=== PATIENT | female | born 1990 | race Caucasian/White ===

== ENCOUNTER 2024-04-25 18:08 | Emergency (ER) | payer BC ==
[~2024-04-25] VITALS: Ht 170.2 cm; Wt 49.9 kg
[2024-04-25 19:30] LABS: BASOPHILS % (AUTO) 0.4 % (0.0-2.0); EOSINOPHILS # (AUTO) 0.1 K/uL (0.0-0.7); HEMATOCRIT 35 % (33-45); LYMPHOCYTES # (AUTO) 2.8 K/uL (0.8-4.8); LYMPHOCYTES % (AUTO) 40.9 % (20.0-44.0); MEAN CORPUSCULAR HEMOGLOBIN 32 PG (26.0-33.0); MEAN CORPUSCULAR HGB CONC 34 g/dl (31.0-36.0); MEAN CORPUSCULAR VOLUME 92 fL (82-100); MONOCYTES # (AUTO) 0.7 K/uL (0.1-1.30); MONOCYTES % (AUTO) 10.8 % (2.0-12.0); NEUTROPHILS # (AUTO) 3.2 K/uL (1.8-8.9); NEUTROPHILS % (AUTO) 46.9 % (43.0-81.0); PLATELET COUNT (AUTO) 257 K/uL (150-450); RED BLOOD CELL COUNT(AUTO) 3.82 MIL/uL (4.0-5.2); RED CELL DISTRIBUTION WIDTH 12.4 % (11.5-15.0); WHITE BLOOD COUNT (AUTO) 6.8 K/uL (4.3-11.0)
[2024-04-25 19:33] LABS: APPEARANCE,URINE SLIGHTLY CLOUDY (CLEAR); BILIRUBIN,URINE NEGATIVE (NEGATIVE); BLOOD, URINE NEGATIVE Ery/uL (NEGATIVE); COLOR,URINE YELLOW (YELLOW); KETONES,URINE TRACE mg/dL (NEGATIVE); LEUKOCYTE ESTERASE ,URINE NEGATIVE (NEGATIVE); NITRITE, URINE NEGATIVE (NEGATIVE); PH,URINE 7.5 (5.0-8.0); PROTEIN,URINE NEGATIVE (NEGATIVE); UGLUCOSE NEGATIVE (NEGATIVE); UROBILINOGEN,URINE 0.2 EU/dL (0.2)
[2024-04-25 19:40] LABS: PREGNANCY TEST URINE QUAL NEGATIVE (NEGATIVE)
[2024-04-25 19:43] LABS: CALCIUM, SERUM 9.3 mg/dL (8.5-10.1); CREATININE 0.9 mg/dL (0.6-1.3); POTASSIUM 3.7 mmol/L (3.5-5.1)
[2024-04-25 19:49] LABS: URINE AMORPHOUS PHOSPHATES Moderate /HPF (None Seen)
[2024-04-25 19:50] LABS: ADD URINE CULTURE NO; BACTERIA,URINE Few /HPF (None Seen); RBC,URINE 0-2 /HPF (0-2); SQUAMOUS EPITHELIAL CELL,UR Rare /HPF (None Seen); WBC,URINE NONE SEEN /HPF (0-3)
[2024-04-25] MEDS ORDERED: KETOROLAC TROMETHAMINE 15 MG/ML VIAL ONE (20:01)
[2024-04-25] MEDS: KETOROLAC TROMETHAMINE 15 MG/ML VIAL IM ONE (20:04)
[2024-04-25] MEDS ORDERED: ONDANSETRON HCL 4 MG/5 ML SOLUTION ONE (20:28)
[2024-04-25] MEDS: ONDANSETRON HCL 4 MG/5 ML SOLUTION PO ONE (20:30)
[2024-04-25] MEDS ORDERED: ONDA4TAB5 PO (21:33)
[2024-04-25] MEDS ORDERED: DICY10CA37 PO (21:33)
[2024-04-25] MEDS ORDERED: IBUP-1953 PO (21:33)
[2024-04-25 21:48] VITALS: BP 121/80; TEMP 98.4; O2SAT 100
== END 2024-04-25 21:50 | disposition home or self-care (01) ==
LOC: ER 18:13
DX: R10.12 Left upper quadrant pain (principal); R07.89 Other chest pain; Z79.1 Long term (current) use of non-steroidal anti-inflammatories (NSAID); Z88.5 Allergy status to narcotic agent
CPT/HCPCS: 99284; 96372; 71100; 85025; 80048; 84703; 81001; 36415; J1885; Q0162